=== PATIENT | female | born 1985 ===

== ENCOUNTER 2018-03-25 08:59 | Emergency (ER) | payer BC ==
[2018-03-25 09:07] VITALS: BMI 22.1
[2018-03-25 09:10] VITALS: BP 101/64; PULSE 75; RESP 18; TEMP 98; O2SAT 98
--- NOTE | 2018-03-25 09:35 | ED PDOC ---
HPI: General Adult Time Seen by Provider: 03/25/18 09:34 Chief Complaint (Provider): History Per: Patient Additional Complaint(s): 33-year-old female currently 9 weeks presents with lower back pain and groin pain 2 weeks. Patient's denies vaginal bleeding or discharge. No fever or chills. Patient does have history of low back pain. This is her first . OB: Dr. Antonio Past Medical History Reviewed: Historical Data, Nursing Documentation, Vital Signs Vital Signs: Last Vital Signs Temp 98 F 03/25/18 09:07 Pulse 75 03/25/18 09:07 Resp 18 03/25/18 09:07 BP 101/64 03/25/18 09:07 Pulse Ox 98 03/25/18 09:07 - Medical History PMH: Back Problems - Surgical History Surgical History: No Surg Hx - Family History Family History: States: No Known Family Hx - Living Arrangements Living Arrangements: With Family - Social History Current smoker - smoking cessation education provided: No Alcohol: None Drugs: Denies - Allergies Allergies/Adverse Reactions: Allergies Allergy/AdvReac Type Severity Reaction Status Date / Time No Known Allergies Allergy Verified 03/25/18 09:45 Review of Systems ROS Statement: Except As Marked, All Systems Reviewed And Found Negative Constitutional: Negative for: Fever Musculoskeletal: Positive for: Back Pain, Other (groin pain) Physical Exam - Reviewed Nursing Documentation Reviewed: Yes Vital Signs Reviewed: Yes - Physical Exam Appears: Positive for: Well, Non-toxic, No Acute Distress Skin: Positive for: Normal Color. Negative for: Rash Eye Exam: Positive for: Normal appearance Cardiovascular/Chest: Positive for: Regular Rate, Rhythm Respiratory: Positive for: Normal Breath Sounds Gastrointestinal/Abdominal: Positive for: Soft. Negative for: Tenderness, Distended, Guarding, Rebound Back: Positive for: Vertebral Tenderness (right lower lumbar region). Negative for: L CVA Tenderness, R CVA Tenderness Extremity: Positive for: Normal ROM Neurologic/Psych: Positive for: Alert, Oriented - Laboratory Results Result Diagrams: 03/25/18 10:00 03/25/18 10:00 Urine POC: Positive - ECG O2 Sat by Pulse Oximetry: 98 Pulse Ox Interpretation: Normal - Other Rad OB TV US X-Ray: Read By Radiologist X-Ray Interpretation: see below Medical Decision Making Medical Decision Makin33 year old female with back pain Plan: Urine dip Urine test CBC CMP Beta OB TV US Patient was offered Tylenol for pain but she declined US: IMPRESSION: Single intrauterine gestation with average ultrasound age of 8 weeks, 3 days which is almost 3 weeks discordant by the age calculated by LMP. heart rate not identified. Findings worrisome for intrauterine demise. Close clinical follow-up with serial pelvic sonography and serum beta HCG levels is recommended. Findings were d/w Dr. Antonio, patient's OB. He states to have patient follow up this coming Monday in his office. Copy of US report and labs provided to patient as per Dr. Antonio. Disposition - Clinical Impression Clinical Impression: demise, Threatened miscarriage - Patient ED Disposition Is Patient to be Admitted: No Counseled Patient/Family Regarding: Studies Performed, Diagnosis, Need For Followup - Disposition Referrals: Kiley Antonio MD [Staff Provider] - Disposition: Routine/Home Disposition Time: 11:57 Condition: STABLE Additional Instructions: Tylenol or Motrin for pain as needed. Follow up with Dr. Antonio in office. Instructions: Miscarriage, Threatened Miscarriage Results - Lab Results Lab Results: 03/25/18 03/25/18 03/25/18 10:05 10:00 10:00 WBC 5.1 RBC 4.35 Hgb 12.2 Hct 35.8 MCV 82.4 MCH 27.9 MCHC 33.9 RDW 13.1 Plt Count 234 MPV 7.4 Neut % (Auto) 63.4 Lymph % (Auto) 28.2 Cross % (Auto) 6.0 Eos % (Auto) 2.0 Baso % (Auto) 0.4 Neut # (Auto) 3.3 Lymph # (Auto) 1.4 Cross # (Auto) 0.3 Eos # (Auto) 0.1 Baso # (Auto) 0.0 Sodium 138 Potassium 4.3 Chloride 108 H Carbon Dioxide 21 L Anion Gap 13 BUN 7 Creatinine 0.4 L Est GFR ( Amer) > 60 Est GFR (Non-Af Amer) > 60 Random Glucose 90 Calcium 9.0 Total Bilirubin 0.6 AST 20 ALT 24 Alkaline Phosphatase 46 Total Protein 7.0 Albumin 3.8 Globulin 3.1 Albumin/Globulin Ratio 1.2 Beta HCG, Quant 20991.00 Urine Color Yellow Urine Clarity Slighty-cloudy Urine pH 7.0 Ur Specific [place] 1.011 Urine Protein Negative Urine Glucose (UA) Neg Urine Ketones Negative Urine Blood Negative Urine Nitrate Negative Urine Bilirubin Negative Urine Urobilinogen 0.2-1.0 Ur Leukocyte Esterase Neg Urine RBC (Auto) 3 Urine Microscopic WBC 2 Ur Squamous Epith Cells 1 Urine Bacteria Occ H
[2018-03-25 10:10] LABS: BASO % 0.4 % (0.0-2.0); EOS # 0.1 K/uL (0.0-0.7); HEMOGLOBIN 12.2 g/dL (12.0-16.0); LYMPH # 1.4 K/uL (1.0-4.3); LYMPH % 28.2 % (20.0-40.0); MEAN CELL VOLUME 82.4 fl (81.0-99.0); MEAN CORPUSCULAR HEMOGLOBIN 27.9 pg (27.0-31.0); MEAN CORPUSCULAR HGB CONC 33.9 g/dL (33.0-37.0); MEAN PLATELET VOLUME 7.4 fl (7.2-11.7); MONO # 0.3 K/uL (0.0-0.8); NEUT # 3.3 K/uL (1.8-7.0); NEUT % 63.4 % (50.0-75.0); RBC 4.35 Mil/uL (3.80-5.20); RED CELL DISTRIBUTION WIDTH 13.1 % (11.5-14.5); WHITE BLOOD COUNT 5.1 K/uL (4.8-10.8)
[2018-03-25 10:22] LABS: ALB/GLOB RATIO 1.2 (1.0-2.1); ALBUMIN 3.8 g/dL (3.5-5.0); ALT/SGPT 24 U/L (9-52); AST/SGOT 20 U/L (14-36); BLOOD UREA NITROGEN 7 mg/dl (7-17); GFR NON-AFRICAN AMERICAN > 60
--- NOTE | 2018-03-25 11:20 | US ---
Date of service: 03/25/2018 PROCEDURE: OB Pelvic Ultrasound HISTORY: 9 weeks , abd pain LMP: 01/07/2018 compatible with estimated gestational age of 11 weeks, 0 days COMPARISON: None available. FINDINGS: UTERUS: Gestational sac: Single intrauterine gestation. Measures 3.2 cm compatible with estimated gestational age of 8 weeks, 2 days. Yolk sac: Measures 0.5 cm pole: [place]-rump length measures 2.0 cm compatible with estimated gestational age of 8 weeks, 4 days Heart rate: Not identified. age (Ultrasound estimated): 8 weeks, 3 days [place]-gestational hemorrhage: None. Date of delivery (Ultrasound estimated) : 11/01/2018 CERVIX: Long and closed. No cervical abnormality seen. RIGHT OVARY: Measures 2.6 x 2.7 x 1.2 cm. No mass lesion. Normal flow. LEFT OVARY: Measures 2.7 x 3.3 x 1.8 cm. 1.6 x 1.6 x 1.3 cm corpus luteum. Normal flow. FREE FLUID: None. OTHER FINDINGS: None. IMPRESSION: Single intrauterine gestation with average ultrasound age of 8 weeks, 3 days which is almost 3 weeks discordant by the age calculated by LMP. heart rate not identified. Findings worrisome for intrauterine demise. Close clinical follow-up with serial pelvic sonography and serum beta HCG levels is recommended.
[2018-03-25 11:34] LABS: SQUAMOUS EPITHIAL 1 /hpf (0-5); URINE BACTERIA OCC (<OCC); URINE BILIRUBIN NEGATIVE (NEGATIVE); URINE BLOOD NEGATIVE (NEGATIVE); URINE CLARITY SLIGHTY-CLOUDY (Clear); URINE COLOR YELLOW (YELLOW); URINE GLUCOSE (UA) NEG (Normal); URINE LEUKOCYTE ESTERASE NEG Leu/uL (Negative); URINE PROTEIN NEGATIVE (NEGATIVE); URINE UROBILINOGEN 0.2-1.0 mg/dL (0.2-1.0)
== END 2018-03-25 12:22 | disposition home or self-care (01) ==
LOC: H.ER 08:59
DX: O20.0 Threatened abortion (principal); Z3A.09 9 weeks gestation of pregnancy

== ENCOUNTER → 2018-03-28 | Day surgery (SDC) | payer BC ==
[2018-03-27 11:40] VITALS: BMI 21.6
[~2018-03-28] MED LIST: APROTININ/FIBRINOGEN(TISSEEL) ONE; Lactated Ringer's 1,000 ML IV ONE; Midazolam 2 MG/2 ML VIAL ONE; OXYTOCIN/0.9 % NS 20 UNIT/1,000 ML BAG IV ONE; Phenylephrine 10 mg/ml Inj ONE; Propofol 10 mg/ml Inj (20 ML) ONE; Succinylcholine 200 mg/10 ml Inj IV ONE; ePHEDrine 50 mg/ml Inj ONE
[2018-03-28 07:40] LABS: MEAN CELL VOLUME 83.2 fl (81.0-99.0); MEAN CORPUSCULAR HEMOGLOBIN 27.9 pg (27.0-31.0); MEAN CORPUSCULAR HGB CONC 33.6 g/dL (33.0-37.0); RBC 4.3 Mil/uL (3.80-5.20); RED CELL DISTRIBUTION WIDTH 13.1 % (11.5-14.5); WHITE BLOOD COUNT 5.5 K/uL (4.8-10.8)
[2018-03-28 09:25] VITALS: RESP 18; O2SAT 100
[2018-03-28 10:43] VITALS: BP 104/52; PULSE 70; TEMP 98.1
--- NOTE | 2018-03-28 19:53 | OP ---
PROCEDURE DATE: 03/28/2018 PREOPERATIVE DIAGNOSIS: Missed . POSTOPERATIVE DIAGNOSIS: Missed . PROCEDURE: Suction, dilation and curettage. SURGEON: Kiley Antonio MD ANESTHESIA: General. ANESTHESIA ADMINISTERED BY: Dr. Carrero. ESTIMATED BLOOD LOSS: 50 mL. INTRAVENOUS FLUID INTAKE: The patient received approximately 1 L of D5 LR intraoperatively. URINE OUTPUT: The patient was straight cathed prior to starting the procedure. OPERATIVE FINDINGS: Normal external female genitalia. Urethra normal. Cervix smooth. Uterus anteverted. No adnexal mass. Vagina pink. Scant blood noted in the vagina. DESCRIPTION OF PROCEDURE: After informed consent was obtained, the patient was taken to the operating room, where she was given general anesthesia. She was then prepped and draped in a normal sterile fashion. A weighted speculum was then inserted into the vagina. The cervix was visualized, grasped with single-tooth tenaculum. Cervix was then gently dilated and a #8 curved suction curette was then introduced into the uterine cavity. The suction device was then activated. It was rotated in a clockwise fashion. Products of conception were evacuated. A sharp curettage was then performed until a gritty texture was noted in the uterine cavity. The suction device was then reintroduced into the uterus, rotated in a clockwise fashion to remove any remaining debris. All instruments were then removed from the vagina. The tenaculum site was inspected and noted to be hemostatic. The patient received Methergine IM, and products of conception were sent for chromosomal analysis. All sponges, lap, needle and instrument counts were correct x2, and the patient was taken to the recovery room in awake and stable condition. Kiley Antonio MD
== END | disposition home or self-care (01) ==
LOC: H.OPSURG 06:02
PROVIDERS: ATTEND Obstetrics & Gynecology Gynecology
DX: O02.1 Missed abortion (principal)
CPT/HCPCS: 36415; 59820; 85027; 86850; 86900; 88305; J0330; J1885; J2001; J2210; J2250; J2370; J2405; J2590; J2704; J3010; J7030; J7120